=== PATIENT | male | born 1945 | race Caucasian/White ===

== ENCOUNTER 2023-09-20 10:07 | Inpatient (IN) | payer OTHER ==
[~2023-09-20] VITALS: Ht 193 cm; Wt 78.9 kg
[2023-09-20 10:07] VITALS: BP_SYST 108; PULSE 69; RESP 18; TEMP 98.1; O2SAT 96
[2023-09-20 10:34] LABS: HEMOGLOBIN 11.4 g/dL (14.0-18.0); MEAN CORPUSCULAR HEMOGLOBIN 30 pg (27-31); MEAN CORPUSCULAR HGB CONC 33 % (32-36); MEAN CORPUSCULAR VOLUME 91 fL (79.0-98.0); PLATELET COUNT (AUTO) 258 K/uL (130-430); RED BLOOD CELL COUNT(AUTO) 3.84 MIL/uL (4.2-6.2); RED CELL DISTRIBUTION WIDTH 19.2 % (9.0-15.0)
[2023-09-20 10:42] LABS: WHITE BLOOD COUNT (AUTO) 36.9 K/uL (4.8-10.8)
[2023-09-20 10:49] LABS: ANION GAP 11 (5-15); CALCIUM 9.4 mg/dL (8.4-11.0); CARBON DIOXIDE 22 mmol/L (23-29); CHLORIDE 107 mmol/L (98-107); CREATININE 0.89 mg/dL (0.55-1.30); GLUCOSE 99 mg/dL (74-106); POTASSIUM 3.9 mmol/L (3.5-5.1); SODIUM SERUM 140 mmol/L (136-145); UREA NITROGEN, BLOOD 10 mg/dL (8-21)
[2023-09-20 10:50] LABS: INR 1.1 (0.80-1.20); PROTHROMBIN TIME 11.6 SECS (9.5-12.5)
[2023-09-20 11:19] LABS: ATYPICAL LYMPHOCYTES % 3 % (0-0); BASOPHILS % (MANUAL) 0 % (0-2); EOSINOPHILS % (MANUAL) 1 % (0-7); LYMPHOCYTES % (MANUAL) 3 % (20-46); METAMYELOCYTES % 5 % (0-0); MONOCYTES % (MANUAL) 9 % (0-11)
[2023-09-20 11:24] LABS: BAND % (MANUAL) 21 % (0-6)
[2023-09-20 11:25] LABS: PLATELET ESTIMATE ADEQUATE (ADEQUATE); POLYCHROMASIA SLIGHT
[2023-09-20] MEDS ORDERED: iohexoL 350 mgI/mL, 100 ML INFUS..BTL IV ONE ×2 (11:55)
[2023-09-20 12:27] LABS: BLOOD GAS BASE EXCESS -2.9 mmol/L (-3.0-3.0); BLOOD GAS HCO3 18.6 mmol/L (21.0-27.0); BLOOD GAS PCO2 25.2 mmHg (32.0-45.0); BLOOD GAS PH 7.486 (7.350-7.450)
[2023-09-20 12:29] LABS: ALLEN'S TEST POSITIVE (P)
[2023-09-20] MEDS ORDERED: DEC4 PO (13:56)
[2023-09-20] MEDS ORDERED: LEVO137T2 PO (13:56)
[2023-09-20] MEDS ORDERED: ONDA8TAB60 PO (13:56)
[2023-09-20] MEDS ORDERED: ONDA4TAB55 PO (13:56)
[2023-09-20] MEDS ORDERED: MIRT-91 PO (13:56)
[2023-09-20] MEDS ORDERED: DICY-14 PO (13:56)
[2023-09-20] MEDS ORDERED: LOM2.5 PO (13:56)
[2023-09-20] MEDS ORDERED: LIPA1CAP23 PO (13:56)
[2023-09-20] MEDS ORDERED: ZOLP10TA2 PO (13:56)
[2023-09-20] MEDS ORDERED: ESCI20TA38 PO (13:56)
[2023-09-20] MEDS ORDERED: ONDANSETRON 4 MG ODT TAB PO PRN (14:00)
[2023-09-20] MEDS ORDERED: ZOLPIDEM TARTRATE 5 MG TABLET PO PRN (14:00)
[2023-09-20] MEDS: D5LR 1,000 ML IV SCH (14:15)
[2023-09-20 14:43] VITALS: O2SAT 95
[2023-09-20 15:01] VITALS: BP_SYST 117; PULSE 63; RESP 17; TEMP 98
[2023-09-20] MEDS: metroNIDAZOLE 500 mg/NS 100 ML IV ONE (15:35)
[2023-09-20 17:04] VITALS: BP_SYST 99; PULSE 59; RESP 16; TEMP 98.3; O2SAT 96
[2023-09-20] MEDS: LEVOTHYROXINE SODIUM 0.137 MG TABLET PO ONE (17:09)
[2023-09-20] MEDS: cefTRIAXone 1 GM in D5W 50 ML IV ONE (17:09)
[2023-09-20] MEDS: LIPASE/PROTEASE/AMYLASE 1 CAP PO SCH (18:23)
[2023-09-20] MEDS: MICAFUNGIN SODIUM 50 MG in NS 50 ML IV SCH (18:24)
[2023-09-20 19:00] VITALS: BP_SYST 106; PULSE 69; RESP 16; TEMP 98.9; O2SAT 94
[2023-09-20 20:00] VITALS: BP_SYST 106; PULSE 69; RESP 16; TEMP 98.9; O2SAT 94
[2023-09-20] MEDS ORDERED: NALOXONE HCL 0.4 MG/ML AMP (NARCAN) IVP PRN (20:45)
[2023-09-20] MEDS ORDERED: ACETAMINOPHEN 325 MG TABLET PO PRN ×2 (20:45)
[2023-09-20] MEDS: MIRTAZAPINE 15 MG TABLET PO SCH (21:16)
[2023-09-20] MEDS: MEROPENEM 1 GM in NS 100 ML IV SCH (21:16)
[2023-09-20] MEDS: HYDROcodone/ACETAMIN 5-325 MG TAB (NORCO/ VICODIN) PO PRN (21:18)
[2023-09-20] MEDS ORDERED: metroNIDAZOLE 500 mg/NS 100 ML IV SCH (22:00)
[2023-09-21 00:48] VITALS: BP_SYST 104; PULSE 69; RESP 18; TEMP 98.6; O2SAT 96
[2023-09-21 05:53] LABS: ANION GAP 10 (5-15); CALCIUM 8.9 mg/dL (8.4-11.0); CARBON DIOXIDE 24 mmol/L (23-29); CHLORIDE 107 mmol/L (98-107); CREATININE 0.89 mg/dL (0.55-1.30); GLUCOSE 92 mg/dL (74-106); POTASSIUM 3.5 mmol/L (3.5-5.1); SODIUM SERUM 141 mmol/L (136-145); UREA NITROGEN, BLOOD 10 mg/dL (8-21)
[2023-09-21 06:04] LABS: ALANINE AMINOTRANSFERASE 18 U/L (12-78); ALBUMIN 2.4 g/dL (3.4-4.8); ASPARTATE AMINOTRANSFERASE 29 U/L (10-37); CHOLESTEROL 103 mg/dL (<200); HDL CHOLESTEROL 22 mg/dL (>45); LIPASE 17 U/L (16-77); THYROID STIMULATING HORMONE 7.12 uIu/mL (0.34-4.82); TOTAL BILIRUBIN 0.5 mg/dL (0.0-1.0); TOTAL PROTEIN, SERUM 5.3 g/dL (6.4-8.3); TRIGLYCERIDES 133 mg/dL (30-150)
[2023-09-21 06:09] LABS: TOTAL IRON BIND. CAPACITY 194 ug/dL (250-450)
[2023-09-21 06:53] LABS: HEMATOCRIT 33.3 % (36-54); HEMOGLOBIN 10.8 g/dL (14.0-18.0); MEAN CORPUSCULAR HEMOGLOBIN 30 pg (27-31); MEAN CORPUSCULAR HGB CONC 33 % (32-36); MEAN CORPUSCULAR VOLUME 91 fL (79.0-98.0); PLATELET COUNT (AUTO) 207 K/uL (130-430); RED BLOOD CELL COUNT(AUTO) 3.64 MIL/uL (4.2-6.2); RED CELL DISTRIBUTION WIDTH 19.4 % (9.0-15.0); WHITE BLOOD COUNT (AUTO) 23.7 K/uL (4.8-10.8)
[2023-09-21 07:56] LABS: BAND % (MANUAL) 15 % (0-6); LYMPHOCYTES % (MANUAL) 5 % (20-46)
[2023-09-21 07:57] LABS: BASOPHILS % (MANUAL) 0 % (0-2); EOSINOPHILS % (MANUAL) 5 % (0-7); METAMYELOCYTES % 7 % (0-0); MONOCYTES % (MANUAL) 13 % (0-11)
[2023-09-21 07:58] LABS: ANISOCYTOSIS 1+; PLATELET ESTIMATE ADEQUATE (ADEQUATE); POLYCHROMASIA 1+
[2023-09-21 08:37] VITALS: O2SAT 95
[2023-09-21 08:43] VITALS: BP_SYST 113; PULSE 72; RESP 18; TEMP 98.3; O2SAT 95
[2023-09-21] MEDS ORDERED: ESCITALOPRAM OXALATE 10 MG TABLET PO SCH (09:00)
[2023-09-21] MEDS: CITALOPRAM HYDROBROMIDE 20 MG TABLET PO SCH (09:00)
[2023-09-21] MEDS ORDERED: cefTRIAXone 1 GM in D5W 50 ML IV SCH (09:00)
[2023-09-21] MEDS: LEVOTHYROXINE SODIUM 0.137 MG TABLET PO SCH (09:01)
[2023-09-21 11:40] VITALS: BP_SYST 95; PULSE 57; RESP 19; TEMP 97.5; O2SAT 95
[2023-09-21] MEDS ORDERED: LEVO-62 PO (13:57)
[2023-09-21 15:19] VITALS: BP_SYST 141; PULSE 72; RESP 16; TEMP 98.7; O2SAT 91
[2023-09-21 16:43] VITALS: BP_SYST 95; PULSE 72; O2SAT 91
[2023-09-21] MEDS ORDERED: IPRATROPIUM/ALBUTEROL SULFATE 3 ML AMPUL.NEB (DUONEB) INH ONE (16:45)
[2023-09-21] MEDS ORDERED: BUDESONIDE 0.5 MG/2 ML AMPUL.NEB INH ONE (16:45)
[2023-09-21] MEDS ORDERED: IPRATROPIUM/ALBUTEROL SULFATE 3 ML AMPUL.NEB (DUONEB) INH SCH (19:00)
[2023-09-21] MEDS ORDERED: BUDESONIDE 0.5 MG/2 ML AMPUL.NEB INH SCH (19:00)
== END 2023-09-21 16:12 | disposition home or self-care (01) | DRG 871 ==
LOC: SED 10:07 → STU 13:11
PROVIDERS: ADMIT Internal Medicine; ATTEND Internal Medicine
DX: A41.9 Sepsis, unspecified organism (principal); J18.9 Pneumonia, unspecified organism; J96.01 Acute respiratory failure with hypoxia; C25.9 Malignant neoplasm of pancreas, unspecified; E03.9 Hypothyroidism, unspecified; R42 Dizziness and giddiness; E86.0 Dehydration; I50.9 Heart failure, unspecified; K80.20 Calculus of gallbladder without cholecystitis without obstruction; Z95.0 Presence of cardiac pacemaker; Z87.891 Personal history of nicotine dependence
CPT/HCPCS: 36415; 36600; 71045; 71275; 80048; 80053; 80061; 82803; 83540; 83550; 83605; 83615; 83690; 83735; 83880; 84443; 84484; 85007; 85027; 85379; 85610; 85730; 86301; 87040; 87305; 87497; 93005; 93306; 94760; 99285; G0378; J0696; J2185; J3490; J7060; J7626; Q9967